=== PATIENT | female | born 1990 | race Caucasian/White ===

== ENCOUNTER 2016-12-07 20:12 | Inpatient (IN) ==
[2016-12-07 21:00] LABS: Basophils % 0.3 %; Eosinophils # 0.3 K/mcL (0.0-0.6); Hematocrit 41.7 % (35.3-44.9); Immature Granulocytes % 0.5 % (0-4); Immature Platelets 7.2 % (1.1-6.1); Lymphocytes # 1.2 K/mcL (0.6-4.6); Lymphocytes % 9.3 %; Mean Corpuscular HGB Conc 31.2 g/dL (31.6-35.5); Mean Corpuscular Hemoglobin 25.5 pg (28.0-33.3); Mean Corpuscular Volume 81.8 fL (83.0-100.0); Mean Platelet Volume 11.5 fL (9.4-12.4); Monocytes # 0.3 K/mcL (0.0-1.3); Monocytes % 2.4 %; Neutrophils # 11.1 K/mcL (1.6-8.9); Platelet Count 290 K/mcL (140-400); Segmented Neutrophils % 85.5 %
[2016-12-07 21:12] LABS: BUN/Creatinine Ratio 9 (6-26); Blood Urea Nitrogen 8 mg/dL (7-20); Calcium 9.4 mg/dL (8.6-10.8); Carbon Dioxide 22 mEq/L (19-29); Chloride 104 mEq/L (98-109); Glucose 152 mg/dL (70-99); Osmolality,Calculated 283 (280-300); Potassium 3.5 mEq/L (3.5-4.5); Sodium 136 mEq/L (136-145); eGFR For African Americans > 60 (> 60); eGFR For Non-African Americans > 60 (> 60)
[2016-12-08] MEDS ORDERED: Ipratropium/Albuterol Neb 3 ML IH ONE (00:14)
[2016-12-08] MEDS ORDERED: 0.9 % Sodium Chloride 1,000 ML IVC ONE (00:28)
[2016-12-08] MEDS ORDERED: Ondansetron 4 MG/2 ML VIAL IVP ONE (00:28)
--- NOTE | 2016-12-08 00:44 | Emergency Department Note ---
Disposition Clinical Impression: Bronchitis Asthma with exacerbation Qualifiers: Asthma severity: moderate persistent Qualified Code(s): J45.41 - Moderate persistent asthma with (acute) exacerbation Disposition: Admitted As Inpatient Condition: Fair Time of Disposition: 02:15 SOB HPI - General Chief Complaint: ED Shortness of Breath/Dyspnea Stated Complaint: leo Source: patient Limitations: no limitations Nursing Notes Reviewed: Yes Vital Signs Reviewed: Yes - History of Present Illness Pt Subjective Complaint: shortness of breath, cough Onset (ago): day(s) (2) Context: recent illness Consistency/Duration: gradually worsening Improves with: oxygen, bronchodilators Worsens with: exertion, coughing Known history of: asthma Associated symptoms: Reports: sputum production - Related Data Home oxygen amount: none Allergies Allergy/AdvReac Type Severity Reaction Status Date / Time Amoxicillin Allergy See Verified 07/13/16 16:29 Comments Penicillins Allergy See Verified 07/13/16 16:29 Comments All systems ED: reviewed and negative except as stated. Constitutional: Reports: fever Eyes: Denies: eye pain, eye discharge Past Medical History - Past Medical History Medical history: Reports: asthma, other Surgical history: Reports: non-contributory Psychiatric history: Reports: no psych history REIMBURSEMENT COUNSELOR history: Reports: no REIMBURSEMENT COUNSELOR history - Social History Smoking Status: Never smoker Smokeless Tobacco Status: No Alcohol use: Reports: none Drug use: Reports: none Physical Exam - General Limitations: no limitations General appearance: alert - ENT ENT exam: mucous membranes dry - Neck Neck exam: Present: trachea midline - Chest Chest inspection: Present: normal inspection, symmetric chest wall rise - Respiratory Respiratory exam: Present: respiratory distress, wheezes - Cardiovascular Cardiovascular exam: Present: normal rhythm, tachycardia, normal heart sounds - Abdominal Exam Abdominal exam: Present: soft, Non-Tender. Absent: distention, guarding, rebound, rigidity - Expanded Lower Extremity Exam Lower leg exam: Absent: tenderness, swelling - Neurological Exam Neurological exam: Present: alert, oriented X3 - Psychiatric Psychiatric exam: Present: anxious - Skin Skin exam: Present: warm, dry, intact, normal color. Absent: rash Course Course Narrative: Is a 26-year-old female with past medical history of asthma. She presents to the emergency department after a visit at urgent care clinic where she presented hypoxic with a oxygen saturation of 85% on room air. She was provided DuoNeb treatments there. She was given 125 mg IM Solu-Medrol. She was then sent here because they are concerned about her respiratory distress. At this time, I will provide this patient with 3 rounds of DuoNeb inhaleed, give her Zofran for nausea, give her a liter of normal saline as she appears dry. This patient appears to be a candidate that may be facing possible admission as she is having oxygen requirements in the emergency Department refractory to treatment. Vital Signs Temperature 98.3 F 12/07/16 20:16 Pulse Rate 99 12/07/16 20:16 Respiratory Rate 20 12/07/16 20:16 Blood Pressure 151/98 12/07/16 20:16 O2 Sat by Pulse Oximetry 94 12/07/16 20:16 Temperature 98.3 F 12/07/16 20:16 Pulse Rate 107 12/08/16 02:11 Respiratory Rate 18 12/08/16 02:11 Blood Pressure 145/82 12/08/16 02:11 O2 Sat by Pulse Oximetry 98 12/08/16 02:31 Oxygen Delivery Oxygen Delivery Nasal Cannula - Reevaluation(s) Reevaluation #1: Patient states that her breathing is a little better, but her lung exam is still wheezy. She still appears dyspneic in conversation. At this time, I will contact the hospitalist and try to get this patient admitted as she has no oxygen at home and she needs oxygen at this time. Time: 01:15 Reevaluation #2: We are still awaiting the hospitalist to call back to have this patient admitted. She is still wheezing and her oxygen saturation was at 93% after walking to the bathroom. I am going to continue her on 2 L of oxygen via nasal cannula and order continuous albuterol at this time. Patient is currently hemodynamically stable. Time: 02:15 Vital Signs Temperature 98.3 F 12/07/16 20:16 Pulse Rate 99 12/07/16 20:16 Respiratory Rate 20 12/07/16 20:16 Blood Pressure 151/98 12/07/16 20:16 O2 Sat by Pulse Oximetry 94 12/07/16 20:16 Temperature 98.4 F 12/08/16 06:30 Pulse Rate 96 12/08/16 06:30 Respiratory Rate 16 12/08/16 06:30 Blood Pressure 121/72 12/08/16 06:30 O2 Sat by Pulse Oximetry 95 12/08/16 06:30 Oxygen Delivery Oxygen Delivery Aerosol Mask Shortness of Breath/Dyspnea - Lab Data Result diagrams: 12/08/16 05:33 12/07/16 20:52 Lab Results 12/07/16 12/07/16 12/07/16 Range/Units 20:52 20:52 20:52 WBC 13.0 H (4.3-11.1) K/mcL RBC 5.10 H (3.82-4.97) M/mcL Hgb 13.0 (11.5-15.4) g/dL Hct 41.7 (35.3-44.9) % MCV 81.8 L (83.0-100.0) fL MCH 25.5 L (28.0-33.3) pg MCHC 31.2 L (31.6-35.5) g/dL RDW 15.0 H (11.5-14.5) % Plt Count 290 (140-400) K/mcL MPV 11.5 (9.4-12.4) fL Immature Gran % 0.5 (0-4) % Seg Neutrophils % 85.5 % Lymphocytes % 9.3 % Monocytes % 2.4 % Eosinophils % 2.0 % Basophils % 0.3 % Neutrophils # 11.1 H (1.6-8.9) K/mcL Lymphocytes # 1.2 (0.6-4.6) K/mcL Monocytes # 0.3 (0.0-1.3) K/mcL Eosinophils # 0.3 (0.0-0.6) K/mcL Basophils # 0.0 (0.0-0.2) K/mcL Immature Plt Fraction 7.2 H (1.1-6.1) % D-Dimer (0-500) ng/mLFEU Sodium 136 (136-145) mEq/L Potassium 3.5 (3.5-4.5) mEq/L Chloride 104 (98-109) mEq/L Carbon Dioxide 22 (19-29) mEq/L BUN 8 (7-20) mg/dL Creatinine 0.88 (0.57-1.11) mg/dL Est GFR ( Amer) > 60 (> 60) Est GFR (Non-Af Amer) > 60 (> 60) BUN/Creatinine Ratio 9 (6-26) Glucose 152 H (70-99) mg/dL Calculated Osmolality 283 (280-300) Lactic Acid 1.5 (0.5-2.2) mmol/L Calcium 9.4 (8.6-10.8) mg/dL Magnesium (1.6-2.6) mg/dL Troponin I (0-0.03) ng/mL B-Natriuretic Peptide (0-100) pg/mL Serum , Qual (Negative) 12/07/16 12/07/16 12/08/16 Range/Units 20:52 20:52 00:40 WBC (4.3-11.1) K/mcL RBC (3.82-4.97) M/mcL Hgb (11.5-15.4) g/dL Hct (35.3-44.9) % MCV (83.0-100.0) fL MCH (28.0-33.3) pg MCHC (31.6-35.5) g/dL RDW (11.5-14.5) % Plt Count (140-400) K/mcL MPV (9.4-12.4) fL Immature Gran % (0-4) % Seg Neutrophils % % Lymphocytes % % Monocytes % % Eosinophils % % Basophils % % Neutrophils # (1.6-8.9) K/mcL Lymphocytes # (0.6-4.6) K/mcL Monocytes # (0.0-1.3) K/mcL Eosinophils # (0.0-0.6) K/mcL Basophils # (0.0-0.2) K/mcL Immature Plt Fraction (1.1-6.1) % D-Dimer (0-500) ng/mLFEU Sodium (136-145) mEq/L Potassium (3.5-4.5) mEq/L Chloride (98-109) mEq/L Carbon Dioxide (19-29) mEq/L BUN (7-20) mg/dL Creatinine (0.57-1.11) mg/dL Est GFR ( Amer) (> 60) Est GFR (Non-Af Amer) (> 60) BUN/Creatinine Ratio (6-26) Glucose (70-99) mg/dL Calculated Osmolality (280-300) Lactic Acid (0.5-2.2) mmol/L Calcium (8.6-10.8) mg/dL Magnesium 2.2 (1.6-2.6) mg/dL Troponin I 0.00 (0-0.03) ng/mL B-Natriuretic Peptide 12 (0-100) pg/mL Serum , Qual (Negative) 12/08/16 12/08/16 12/08/16 Range/Units 00:40 00:50 00:50 WBC (4.3-11.1) K/mcL RBC (3.82-4.97) M/mcL Hgb (11.5-15.4) g/dL Hct (35.3-44.9) % MCV (83.0-100.0) fL MCH (28.0-33.3) pg MCHC (31.6-35.5) g/dL RDW (11.5-14.5) % Plt Count (140-400) K/mcL MPV (9.4-12.4) fL Immature Gran % (0-4) % Seg Neutrophils % % Lymphocytes % % Monocytes % % Eosinophils % % Basophils % % Neutrophils # (1.6-8.9) K/mcL Lymphocytes # (0.6-4.6) K/mcL Monocytes # (0.0-1.3) K/mcL Eosinophils # (0.0-0.6) K/mcL Basophils # (0.0-0.2) K/mcL Immature Plt Fraction (1.1-6.1) % D-Dimer 354 (0-500) ng/mLFEU Sodium (136-145) mEq/L Potassium (3.5-4.5) mEq/L Chloride (98-109) mEq/L Carbon Dioxide (19-29) mEq/L BUN (7-20) mg/dL Creatinine (0.57-1.11) mg/dL Est GFR ( Amer) (> 60) Est GFR (Non-Af Amer) (> 60) BUN/Creatinine Ratio (6-26) Glucose (70-99) mg/dL Calculated Osmolality (280-300) Lactic Acid 1.8 (0.5-2.2) mmol/L Calcium (8.6-10.8) mg/dL Magnesium (1.6-2.6) mg/dL Troponin I (0-0.03) ng/mL B-Natriuretic Peptide (0-100) pg/mL Serum , Qual Negative (Negative) Attestation Statement - Attestation Attestation: I, Gal Jane MD, personally evaluated this patient and discussed their management with the resident physician. I reviewed the resident's note and agree with the documented findings, medical decision making, and plan of care. 26-year-old female with history of asthma presents to the emergency department with a complaint of increased wheezing and shortness of breath which started yesterday. There has been increased cough with some green sputum production. Subjective fever. Patient does not have home oxygen or nebulizer. She does have inhalers. She was seen at urgent care this evening with an oxygen saturation in the mid 80s. She received DuoNeb treatment and Solu-Medrol 250 mg IM. Symptoms did not significantly improved and she was referred from urgent care to the emergency department. Patient's initial oxygen saturation at triage was in the mid 90s however when she was placed in a room she was noted to be in the upper 80s. On examination patient is a well-developed morbidly obese female in mild respiratory distress. She is alert and oriented 3. There is no cyanosis or diaphoresis. Breath sounds are decreased bilaterally with diffuse tight bilateral expiratory wheezes. Heart regular with a mild tachycardia. Abdomen soft and nontender with normal bowel sounds. Here in the emergency department the patient received triple DuoNeb treatment. IV fluids. Placed on oxygen. She had some improvement but continues to have wheezing and shortness of breath. Additional albuterol nebulizers ordered. Labs reviewed. Patient had a chest x-ray at urgent care this evening which was negative. The hospitalist, Dr. Merino, was consulted and accepted admission of the patient.
[2016-12-08] MEDS ORDERED: Albuterol 2.5 MG/3 ML NEBULIZER IH ONE (02:09)
[2016-12-08] MEDS ORDERED: Albuterol Neb 7.5 MG, Sodium Chloride for inhalation 12 ML IH ONE (02:27)
[2016-12-08] MEDS ORDERED: Ondansetron 4 MG/2 ML VIAL IVP PRN (03:57)
[2016-12-08] MEDS ORDERED: Naloxone 0.4 MG/ML INJ IVP PRN (03:57)
[2016-12-08] MEDS ORDERED: *HR* Morphine 2 MG/ML SYRINGE IVP PRN (03:57)
[2016-12-08] MEDS ORDERED: Acetaminophen 325 MG TABLET PO PRN (03:57)
--- NOTE | 2016-12-08 05:15 | Internal Med History&Physical ---
Date of Encounter: 12/08/16 Time of Encounter: 04:45 Assessment and Plan (1) Asthma with exacerbation Current visit: Yes Status: Acute Acute hypoxic respiratory failure - secondary to acute asthma exacerbation Continue DuoNeb breathing treatment, empiric IV Rocephin, Symbicort Chest x-ray - pending EKG - pending Troponin - negative D-dimer - 354 Cardiac telemetry, continuous pulse ox, continue to monitor closely Qualifiers: Asthma severity: moderate persistent Qualified Code(s): J45.41 - Moderate persistent asthma with (acute) exacerbation (2) Morbid obesity with BMI of 50.0-59.9, adult Current visit: Yes Status: Chronic (3) DVT prophylaxis Current visit: Yes Status: Acute Internal Medicine - H&P: HPI Chief complaint: Shortness of breath Admitted From: Emergency Dept Plans for Post Hospital Care: Home History of present illness: Ms. Lomas is a 26 year old female with past medical history of asthma and GERD. She presents to the ED with complaints of shortness of breath. Examined in the room. Patient is awake and alert. Not in any distress. Able to provide all history. Patient states shortness of breath started about 2-3 days ago. Symptoms gradually worsened. She also complains of cough with some sputum production. She initially went to a urgent care, and was found to be hypoxic. She was given DuoNeb breathing treatment and Solu-Medrol. She has been advised to go to ED for respiratory failure. Patient states her symptoms are worse with exertion. No alleviating factors. She does not use oxygen at home. She denies smoking. She states she only uses an inhaler as needed. She states she also uses Advair at home. No other acute events or complaints at this time. Patient denies chest pain, denies palpitations, denies headache or vomiting. Initial workup in the ED revealed acute asthma exacerbation. She was given breathing treatments and normal saline. Patient is being admitted for acute asthma exacerbation. She also requires oxygen via nasal cannula. She seems to have hypoxia without supplemental oxygen at this time. No other acute events or complaints. CODE STATUS full code. Past Med Surg Social Fam HX - Past Medical History Medical history: asthma, other Psychiatric history: no psych history - Past Surgical History Surgical History: non-contributory - Social History Smoking Status: Never smoker Smokeless Tobacco Status: No Alcohol use: none Drug use: none Internal Medicine - H&P: Meds Ipratropium [Atrovent Inhaler] 1 puff IH Q6H PRN #1 [email or web address] 07/13/16 [Rx] Mucinex 12/07/16 [History] Ranitidine HCl 12/07/16 [History] Tylenol 12/07/16 [History] 3 Allergy/AdvReac Type Severity Reaction Status Date / Time Amoxicillin Allergy See Verified 07/13/16 16:29 Comments Penicillins Allergy See Verified 07/13/16 16:29 Comments All Systems PM: A 10-system review of systems was performed and is negative for pertinent findings except as documented above in the HPI. - Constitutional Constitutional: fatigue, no fever(s), no weakness - EENT Eyes: no blurry vision - Cardiovascular Cardiovascular ROS IM: dyspnea, dyspnea on exertion, no chest pain, no diaphoresis, no edema, no lightheadedness, no orthopnea, no syncope - Respiratory Respiratory: cough, dyspnea, dyspnea on exertion, wheezing, chest congestion, excessive phlegm production, no hemoptysis - Gastrointestinal Gastrointestinal: no abdominal pain, no constipation, no cramping, no diarrhea, no hematemesis, no hematochezia, no melena, no nausea, no vomiting - Genitourinary Genitourinary: no dysuria - Musculoskeletal Musculoskeletal ROS IM: no back pain - Neurological Neurological ROS: no abnormal gait, no confusion, no dizziness, no loss of vision, no numbness, no tingling - Constitutional Vitals: Temp Pulse Resp BP Pulse Ox 98.3 F 104 20 118/71 94 12/08/16 04:34 12/08/16 04:34 12/08/16 04:34 12/08/16 04:34 12/08/16 04:34 General appearance: Present: mild distress, A&O X 3, morbidly obese, pleasant, answers questions appropriately - Head Head exam: Present: atraumatic - Eye Eye exam: Present: EOMI - ENT ENT exam: Present: mucous membranes moist - Respiratory Respiratory exam: Present: wheezes (Bilateral in all lung marrero). Absent: accessory muscle use, rales, respiratory distress, rhonchi, tachypnea - Cardiovascular Cardiovascular exam: Present: RRR, +S1, +S2, tachycardia - GI/Abdominal GI/Abdominal exam: Present: soft (Obese). Absent: distended, firm, guarding, tenderness - Extremities Exam Extremities exam: Absent: calf tenderness, cyanotic, pedal edema, radial pulses palpable and symmetrical - Neurological Exam Neurological exam: Present: alert, oriented X3, no focal deficits. Absent: facial droop, speech deficit Internal Med - H&P Results - Labs CBC & Chem 7: 12/07/16 20:52 12/07/16 20:52
[2016-12-08 06:01] LABS: Basophils % 0.1 %; Hematocrit 39.5 % (35.3-44.9); Hemoglobin 12.7 g/dL (11.5-15.4); Immature Granulocytes % 0.5 % (0-4); Lymphocytes # 0.6 K/mcL (0.6-4.6); Lymphocytes % 5.7 %; Mean Corpuscular HGB Conc 32.2 g/dL (31.6-35.5); Mean Corpuscular Volume 80.9 fL (83.0-100.0); Mean Platelet Volume 11.7 fL (9.4-12.4); Monocytes # 0.1 K/mcL (0.0-1.3); Monocytes % 1.1 %; Neutrophils # 10.2 K/mcL (1.6-8.9); Platelet Count 288 K/mcL (140-400); Red Blood Count 4.88 M/mcL (3.82-4.97); Red Cell Distribution Width 15.1 % (11.5-14.5); Segmented Neutrophils % 92.6 %
[2016-12-08] MEDS: Famotidine 20 MG/2 ML VIAL IVP SCH ×2 (06:25→17:14)
[2016-12-08] MEDS: Budesonide/Formoterol 160/4.5 MDI IH SCH ×2 (08:12→20:51)
[2016-12-08] MEDS: Ipratropium/Albuterol Neb 3 ML IH SCH ×5 (08:12→23:59)
[2016-12-08] MEDS: *HR* Heparin 5,000 UNIT/ML VIAL SQ SCH ×3 (08:44→23:58)
[2016-12-08] MEDS: methylPREDNISolone 125 MG/2 ML VIAL IVP SCH ×3 (08:44→23:58)
--- NOTE | 2016-12-08 13:21 | Internal Med Progress Note ---
Date of Encounter: 12/08/16 Time of Encounter: 13:19 - Assessment and plan (1) Pneumonia Current Visit: Yes Status: Acute Qualifiers: Pneumonia type: due to unspecified organism Laterality: left Lung location: lower lobe of lung Qualified Code(s): J18.1 - Lobar pneumonia, unspecified organism (2) Asthma with exacerbation Current Visit: Yes Status: Acute Qualifiers: Asthma severity: moderate persistent Qualified Code(s): J45.41 - Moderate persistent asthma with (acute) exacerbation (3) GERD (gastroesophageal reflux disease) Current Visit: Yes Status: Acute Qualifiers: Esophagitis presence: esophagitis presence not specified Qualified Code(s) : K21.9 - Gastro-esophageal reflux disease without esophagitis (4) Morbid obesity with BMI of 50.0-59.9, adult Current Visit: Yes Status: Chronic (5) DVT prophylaxis Current Visit: Yes Status: Acute - Subjective Interval history: Ms. Lomas is a 26 year old female with past medical history of asthma and GERD. Patient is admitted for acute asthma exacerbation. Chest x-ray showed left lower lobe infiltrate consistent with pneumonia. Patient has been started on IV Rocephin and IV steroid med nebs. Continue current treatment she is is still quite wheezy on my examination. - Constitutional Vitals: Temp Pulse Resp BP Pulse Ox 98.4 F 88 18 135/87 96 12/08/16 11:04 12/08/16 11:04 12/08/16 11:37 12/08/16 11:04 12/08/16 11:37 General appearance: Present: A&O X 3, morbidly obese, pleasant, no acute distress, answers questions appropriately - Head Head exam: Present: atraumatic, normocephalic - Eye Eye exam: Present: PERRL, conjuntiva pink, sclera anicteric Pupils: Present: PERRL - Neck Neck exam general surgery: Present: supple, trachea midline. Absent: lymphadenopathy - Respiratory Respiratory exam: Present: CTAB, wheezes. Absent: accessory muscle use, rales, rhonchi - Cardiovascular Cardiovascular exam: Present: RRR, +S1, +S2. Absent: diastolic murmur, gallop, rubs, systolic murmur - GI/Abdominal GI/Abdominal exam: Present: normal bowel sounds, soft, no peritoneal signs. Absent: distended, tenderness - Extremities Exam Extremities exam: Present: warm, radial pulses palpable and symmetrical. Absent : calf tenderness, cyanotic, pedal edema - Neurological Exam Neurological exam: Present: CN II-XII intact, oriented X3, no focal deficits. Absent: pronater drift, facial droop, speech deficit - Skin Skin exam: Present: dry, intact Internal Medicine: Result - Labs CBC & Chem 7: 12/08/16 05:33 12/07/16 20:52 Labs: Short CBC 12/08/16 Range/Units 05:33 WBC 11.0 (4.3-11.1) K/mcL Hgb 12.7 (11.5-15.4) g/dL Hct 39.5 (35.3-44.9) % Plt Count 288 (140-400) K/mcL Neutrophils # 10.2 H (1.6-8.9) K/mcL - ABG Interpretation ABG results: PT/INR, D-dimer D-Dimer 354 ng/mLFEU (0-500) 12/08/16 00:50 - Impressions Impressions Chest X-Ray 12/08/16 03:59 IMPRESSION: Airspace disease in the left lower lobe could represent pneumonia The findings were sent to the Radiology Results Communication Center at 1:02 pm on 12/08/2016to be communicated to a licensed caregiver. D/ / Bakari Etienne MD / Bakari Etienne MD Interpreting Provider: Bakari Etienne MD Consult Discharge Plan - Plan Referrals: Eugenio Patel DO [Primary Care Provider] -
[2016-12-08] MEDS ORDERED: FLUoxetine 20 MG CAPSULE PO SCH (21:00)
[2016-12-09 04:41] LABS: Basophils % 0.1 %; Hematocrit 38.3 % (35.3-44.9); Hemoglobin 12.3 g/dL (11.5-15.4); Immature Granulocytes % 0.5 % (0-4); Lymphocytes # 1.1 K/mcL (0.6-4.6); Lymphocytes % 6.2 %; Mean Corpuscular HGB Conc 32.1 g/dL (31.6-35.5); Mean Corpuscular Hemoglobin 26.3 pg (28.0-33.3); Mean Platelet Volume 11.7 fL (9.4-12.4); Monocytes # 0.3 K/mcL (0.0-1.3); Neutrophils # 15.7 K/mcL (1.6-8.9); Platelet Count 309 K/mcL (140-400); Red Blood Count 4.67 M/mcL (3.82-4.97); Red Cell Distribution Width 15.5 % (11.5-14.5); Segmented Neutrophils % 91.2 %
[2016-12-09] MEDS: Ipratropium/Albuterol Neb 3 ML IH SCH ×4 (04:55→16:05)
[2016-12-09 05:02] LABS: Alanine Aminotransferase 11 Units/L (0-55); Alkaline Phosphatase 62 Units/L (38-126); Aspartate Amino Transferase 9 Units/L (5-34); BUN/Creatinine Ratio 20 (6-26); Bilirubin,Total 0.3 mg/dL (0.2-1.2); Calcium 9.5 mg/dL (8.6-10.8); Carbon Dioxide 22 mEq/L (19-29); Chloride 110 mEq/L (98-109); Glucose 129 mg/dL (70-99); Osmolality,Calculated 296 (280-300); Potassium 4.3 mEq/L (3.5-4.5); Sodium 141 mEq/L (136-145); Total Protein 7.4 g/dL (6.0-8.3); eGFR For African Americans > 60 (> 60); eGFR For Non-African Americans > 60 (> 60)
[2016-12-09 05:05] LABS: Blood Urea Nitrogen 19 mg/dL (7-20)
[2016-12-09] MEDS: Famotidine 20 MG/2 ML VIAL IVP SCH (05:55)
[2016-12-09 07:25] LABS: Albumin 3.7 g/dL (3.5-5.0); Globulin 3.7 g/dL (2.4-3.5)
[2016-12-09] MEDS: Budesonide/Formoterol 160/4.5 MDI IH SCH (07:56)
[2016-12-09] MEDS: *HR* Heparin 5,000 UNIT/ML VIAL SQ SCH (08:47)
[2016-12-09] MEDS: methylPREDNISolone 125 MG/2 ML VIAL IVP SCH (08:47)
[2016-12-09 15:54] VITALS: BP 128/79
--- NOTE | 2016-12-09 15:56 | Discharge Summary ---
Date of Encounter: 12/09/16 Time of Encounter: 15:45 - Discharge Diagnosis (1) Pneumonia Priority: Primary Status: Acute Qualifiers: Pneumonia type: due to unspecified organism Laterality: left Lung location: lower lobe of lung Qualified Code(s): J18.1 - Lobar pneumonia, unspecified organism (2) Asthma with exacerbation Priority: Secondary Status: Acute Qualifiers: Asthma severity: moderate persistent Qualified Code(s): J45.41 - Moderate persistent asthma with (acute) exacerbation (3) GERD (gastroesophageal reflux disease) Priority: Secondary Status: Acute Qualifiers: Esophagitis presence: esophagitis presence not specified Qualified Code(s) : K21.9 - Gastro-esophageal reflux disease without esophagitis (4) Morbid obesity with BMI of 50.0-59.9, adult Priority: Secondary Status: Chronic (5) DVT prophylaxis Priority: Secondary Status: Acute - Discharge Medications Prescriptions: Albuterol Sulfate [Albuterol Inhaler] 2 puff IH Q6HR PRN #1 aerosol PRN Reason: Dyspnea Ipratropium/Albuterol Neb [Duoneb] 3 ml IH Q6HR #120 inh Cefuroxime PO [Ceftin] 500 mg PO Q12HR #20 tablet predniSONE [PredniSONE] 10 mg PO DAILY #60 tablet Home Medications: AcetaZOLAMIDE [Diamox Sequels] 500 mg PO DAILY 12/08/16 [History] FLUoxetine HCl [Prozac] 40 mg PO DAILY 12/08/16 [History] Omeprazole [PriLOSEC] 20 mg PO DAILY 12/08/16 [History] Ranitidine HCl [Acid Second Time Worker] 150 mg PO BID 12/08/16 [History] SUMAtriptan succinate [Imitrex] 25 mg PO Q2H PRN 12/08/16 [History] Albuterol Sulfate [Albuterol Inhaler] 2 puff IH Q6HR PRN #1 aerosol 12/09/16 [Rx ] Budesonide/Formoterol 160/4.5 [Symbicort 160/4.5] 1 puff IH BIDRESP 12/09/16 [Rx ] Cefuroxime PO [Ceftin] 500 mg PO Q12HR #20 tablet 12/09/16 [Rx] FLUoxetine HCl [Prozac] 40 mg PO HS 12/09/16 [Rx] Ipratropium/Albuterol Neb [Duoneb] 3 ml IH Q6HR #120 inh 12/09/16 [Rx] predniSONE [PredniSONE] 10 mg PO DAILY #60 tablet 12/09/16 [Rx] Allergies/Adverse Reactions: 3 Allergy/AdvReac Type Severity Reaction Status Date / Time Amoxicillin Allergy See Verified 07/13/16 16:29 Comments Penicillins Allergy See Verified 07/13/16 16:29 Comments Date of admission: 12/08/16 03:57 Primary care physician: Eugenio Patel DO Consults: 12/08/16 04:11 Consult to Nurse Navigator [CONS] Routine Comment: Discharging clinician: Ryanne Crystal Anticipated date of discharge: 12/09/16 - Patient Status Disposition: Home, Self-Care Condition: Good Overall status at discharge: patient is progressing back to baseline - Discharge Instructions Follow Up With: Eugenio Patel DO [Primary Care Provider] - - Diet and Activity Activity: resume usual activities as tolerated Diet: advance to your usual diet Hospital course: Ms. Lomas is a 26 year old female treated for acute asthma exacerbation and left lower lobe pneumonia. She was treated with IV antibiotic Rocephin IV steroid made day with Mucinex. She has improved significantly. She does not need any nasal oxygen. White count is coming down. She will be started on oral medication. She is very eager to go home and although she was asked to stay for another day so that we can see if white count is going down for the she does want to stay and would leave. She is advised to follow with family physician next week. - Time Spent with Patient Total time spent providing and/or coordinating discharge services: Greater than 30 minutes - Constitutional Vitals: Temp Pulse Resp BP Pulse Ox 99.2 F 92 15 123/70 97 12/09/16 11:40 12/09/16 11:40 12/09/16 11:40 12/09/16 11:40 12/09/16 11:40 General appearance: Present: A&O X 3, morbidly obese, pleasant, no acute distress, answers questions appropriately - Head Head exam: Present: atraumatic, normocephalic - Eye Eye exam: Present: PERRL, conjuntiva pink, sclera anicteric Pupils: Present: PERRL - Neck Neck exam general surgery: Present: supple, trachea midline. Absent: lymphadenopathy - Respiratory Respiratory exam: Present: CTAB. Absent: accessory muscle use, rales, rhonchi, wheezes - Cardiovascular Cardiovascular exam: Present: RRR, +S1, +S2. Absent: diastolic murmur, gallop, rubs, systolic murmur - GI/Abdominal GI/Abdominal exam: Present: normal bowel sounds, soft, no peritoneal signs. Absent: distended, tenderness - Extremities Exam Extremities exam: Present: warm, radial pulses palpable and symmetrical. Absent : calf tenderness, cyanotic, pedal edema - Neurological Exam Neurological exam: Present: CN II-XII intact, oriented X3, no focal deficits. Absent: pronater drift, facial droop, speech deficit - Skin Skin exam: Present: dry, intact
--- NOTE | 2016-12-11 20:58 | Electrocardiograph Report ---
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
== END 2016-12-09 17:51 | disposition home or self-care (01) | DRG 139 ==
LOC: 3BNU 20:12 → EMEROO 20:12 → 3BNU 12-08 04:10
PROVIDERS: ADMIT Family Medicine; ATTEND Registered Nurse